=== PATIENT | male | born 1955 | race African-American/Black ===

== ENCOUNTER → 2016-12-05 | Outpatient (CLI) | payer BC ==
[~2016-12-05] MED LIST: CARAFATE1 G; FLEXERIL10 MG PO; IBUPROFEN800 MG PO; LORTAB 5/500 TA1 TA1 PO
--- NOTE | ~2016-12-05 | US5 ---
[facility] A Service of [facility] & [facility] RADIOLOGY TEXT RESULTS PATIENT: MICHAEL PORTER LOCATION: [facility] : 57 UNIT #: [id number] AGE: [address]: MIGNON JOHNSON SEX: M ORDER DR: [id number] [facility] [address] [place], [place] [address] [id number] O MR#: [id number] Acc #: [id number] NAME: MICHAEL PORTER : 1955 SEX: M STUDY DATE/TIME: 12/05/2016 8:28 UNIT: [facility] ROOM: STUDY DESCRIPTION: US Abdominal Complete Attending Physician: Mignon Johnson M.D. Referring Physician: Mignon Johnson M.D. Ordering Physician: Staff Doctor Not On Primary Care Physician: Woody Berrios M.D. MEDICAL IMAGING REPORT This report is preliminary unless electronic signature is present EXAM Abdominal ultrasound, complete; 12/05/2016. HISTORY Hepatitis C diagnosed 10 years ago with treatment 1-1/2 years ago. Follow up observation for cirrhosis and hepatocellular carcinoma. FINDINGS The liver demonstrates a coarsened echotexture, but no cystic or solid mass lesions were seen within the liver. The intra and extrahepatic bile ducts are not dilated. The gallbladder is normal with no evidence of cholelithiasis, wall thickening or pericholecystic fluid. The common duct is top normal in size measuring 7 mm. The pancreas and spleen are normal. The spleen measures 11.1 cm in greatest diameter. The visualized portions of the abdominal aorta and inferior vena cava are within normal limits. The kidneys are normal bilaterally. IMPRESSION 1. Coarsened liver echotexture. No cystic or solid mass lesions were seen within the liver. 2. Normal gallbladder. Top normal sized common duct measuring 7 mm. Dictated by... Rich Salinas M.D. THIS IS AN ELECTRONICALLY VERIFIED REPORT Rich Salinas M.D. at 12/05/2016 5:06 PM BÁRBARA/anuja TD: 12/05/2016 16:51 JOB #: [id number] [facility] A Service of [facility] & [facility] RADIOLOGY TEXT RESULTS PATIENT: MICHAEL PORTER LOCATION: [facility] #: [id number] : 57 UNIT #: [id number] AGE: [address]: MIGNON JOHNSON SEX: M ORDER DR: MEDICAL IMAGING REPORT Page 1 of 1 COPY
== END | disposition home or self-care (01) ==
LOC: CGUS 07:51
DX: B18.2 Chronic viral hepatitis C (principal); R93.2 Abnormal findings on diagnostic imaging of liver and biliary tract
CPT/HCPCS: 76700